=== PATIENT | female | born 1985 | race Caucasian/White ===

== ENCOUNTER → 2022-07-30 10:52 | Outpatient (CLI) | payer BC, SELFPAY ==
--- NOTE | ~2022-07-30 | MR_ITS ---
EXAMINATION: MR knee RT wo con DATE: 07/30/2022 11:49 INDICATION: Right knee pain post injury 2 weeks prior with suspected meniscal injury. TECHNIQUE: Magnetic resonance imaging (MRI) of the right knee was performed without intravenous contr ast. Sequences included coronal PD-weighted FSE, coronal PD-weighted FS FSE, sagittal T2-weighted FS E, sagittal PD-weighted FS FSE and axial PD weighted fat saturated FSE. COMPARISON: None. FINDINGS: Medial compartment: Medial meniscus is normal. Small region of shallow chondral ulceration at the lateral side of the ant erior weightbearing medial femoral condyle. Lateral compartment: Lateral meniscus is normal. Articular cartilage is normal. Patellofemoral compartment: Shallow chondral fissuring at the lateral patellar facet. Trochlear cartilage is normal. Ligaments and tendons: Complete tear at the central aspect of the anterior cruciate ligament. The posterior cruciate ligamen t is normal. There is mild thickening and mild increased signal at the anterior aspect of the proxima l medial collateral ligament and with mild edema extending proximally distally along the ligament con sistent with moderate grade sprain/partial tear. The fibular collateral ligament complex is normal. T he extensor mechanism is normal. The visualized medial and lateral hamstring tendons as well as the i liotibial band are normal. Fluid: Small right knee joint effusion. Small Ordonez's cyst. No loose osteochondral bodies identified. Osseous/other: Marrow edema surrounding a curvilinear nondisplaced trabecular fracture line underlying the posterior rim of the medial tibial plateau. Additional mild marrow edema without discrete fracture line consis tent with bone contusion along the posterior rim of the lateral tibial plateau. No corresponding frac ture or contusion along the femoral condyles. IMPRESSION: 1. Complete tear of the anterior cruciate ligament and moderate grade sprain/partial tear at the prox imal medial collateral ligament. 2. Nondisplaced impaction fracture along the posterior rim of the medial tibial plateau and bone cont usion without discrete fracture line at the posterior rim of the lateral tibial plateau likely due to anterior tibial subluxation occurring in conjunction with the ligament tears. 3. 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 4. Likely reactive small right knee joint effusion and small Ordonez's cyst. Reviewed, dictated and finalized at location A. DIGGER IMPRESSION: 1. Complete tear of the anterior cruciate ligament and moderate grade sprain/pa rtial tear at the proximal medial collateral ligament. 2. Nondisplaced impaction fracture along the posterior rim of the medial tibial plateau and bone contusion without discrete fracture line at the posterior rim of the lateral tibial plateau likely due to anterior tibial subluxation occurr ing in conjunction with the ligament tears. 3. Minimal osteoarthritis with small regions of moderate grade chondromalacia a long the anterior weightbearing medial femoral condyle and the lateral patellar facet. 4. Likely reactive small right knee joint effusion and small Ordonez's cyst.
== END ==
PROVIDERS: PCP Family Medicine Adolescent Medicine; Visit Provider Physician Assistant
DX: S83.411A Sprain of medial collateral ligament of right knee, initial encounter (principal); S83.511A Sprain of anterior cruciate ligament of right knee, initial encounter; X58.XXXA Exposure to other specified factors, initial encounter
CPT/HCPCS: 73721

== ENCOUNTER 2022-09-09 00:57 | Day surgery (SDC) | payer BC, SELFPAY ==
[2022-09-02 08:51] VITALS: BMI 38.2
--- NOTE | 2022-09-02 08:57 | PC.NURSE ---
Report to the Outpatient Waiting Room, entrance under the green pavilion located off [facility], at time 0600 on date 09/09/22. Planned Procedure Time: 0730. Time changes happen often and if your time is changed the preop area will call you the afternoon before. - You and your visitor will be asked to self-screen and do not enter if you have any COVID symptoms. - A mask is optional within the hospital at this time. Patients may have clear liquids (water, carbonated beverages, clear teas, apple juice) until 3 hours prior to surgery with a maximum of 20 ounces. - No food from midnight until time of surgery Take the following medications with a SIP of water the morning of surgery: BUSPIRONE DO NOT STOP ANY OF YOUR OTHER PRESCRIPTION MEDICATIONS PRIOR TO SURGERY?EXCEPT THE FOLLOWING Medications to discontinue per physician: N/A Date to take last dose: N/A Please no make-up, nail citizen of [place], hairspray, perfume, deodorant, or body powder the day of surgery. No jewelry (including any body piercings) or valuables the day of surgery, leave them at home. Please take a shower or bath the night before, or the morning of, surgery with an antibacterial soap. Wear comfortable, loose fitting clothing. - Jewelry must be removed prior to entering the operating room. Rings and piercings that are not removed may be cut off. - The hospital will not accept responsibility for valuables. - Please leave all valuables, including medications, at home the day of surgery. If you are going home after surgery, a licensed motor bus driver must drive you home. - NO public transportation without another adult if you receive anesthesia. - We recommend that an adult stay with you for 24 hours following discharge. - We also recommend that you do not drive, make important decision, drink alcoholic beverages, or take any drugs that were not prescribed by your health care provider for at least 24 hours after your discharge time. Follow any additional instructions given to you from your surgeon. If you or anyone in your household have experienced Covid symptoms in the past week, please notify your surgeon or the nurse liaison at the phone number below for possible testing. Telephone instructions given to PT - MIGUEL A HEREDIA and asked if any additional questions and then verbalized understanding. Patient advised to call surgeon office or pre surgery nurse liaison [phone] if any additional questions.
--- NOTE | 2022-09-08 09:54 | P.PNAN_ITS ---
Anes - Initial Pre Proc Eval Procedure: Operation Date: 09/09/22 07:30 Proposed Procedures p Right Anterior Cruciate Ligament Reconstruction - Abdi Finch MD Date/Time: 09/08/22 09:54 Surgeon: Abdi Finch MD Pre Op Diagnosis: complete tear of right acl Patient Data Age: 36 Gender: F Height: 1.65 m Weight: 104.4 kg Allergies Allergy/AdvReac Type Severity Reaction Status Date / Time erythromycin base Allergy Mild Hives / Verified 09/02/22 08:50 Red Face levofloxacin [From Levaquin] Allergy Rash Verified 09/02/22 08:50 Home Medications Medication Instructions Recorded Confirmed Type trazodone 100 mg tablet 100 mg PO QHS PRN insomnia #30 tabs 08/12/22 09/02/22 Rx buspirone 10 mg tablet 10 mg PO BID #60 tabs 08/25/22 09/02/22 Rx Patient hx anesthesia problems: none Family hx anesthesia problems: none Results Review: All pre-operative results and documents have been reviewed as part of the pre- operative evaluation. [facility] Past Medical History Medical History (Updated 09/08/22 @ 08:43 by Sanjay Hawk DO) Anxiety Surgical History Surgical History Delivery by section History of tonsillectomy Family History Family History Father Asthma Mother Diabetes mellitus Hypertension Neuropathy Social History Social History Smoking packs per day: 0.5 Smoking cigarettes per day: 10.0 Years smoked: 4 Smoking pack-years: 2.00 Smoking status: Former smoker Tobacco type: cigarettes Smoking end date: 05/22/07 Alcohol intake: current Drinks per week: 2 Alcohol use details: Socially Substance use: never Substance use type: does not use Lack of Transportation: No Lack of Food: Never True Current Housing: I Have Housing Concerned About Future Housing: No Difficulty Paying Gas/Electric Bills: No Difficulty Paying for Meds: No Currently Unemployed: No Education: Trade/Vocational Certificate Difficulty w/ Childcare or Family Care: No Living arrangements: with family Gender identity (if verbalized by the patient): Female Spiritual care concerns: No Anes - Eval Final PreProcedure Day of Procedure 09/08/22 09:54 Patient weight: obese Heart: regular rate and rhythm Lungs: clear to auscultation Airway: Mallampati scale class 1 Neurological: alert and oriented Last oral intake: >/= 8 hours ASA classification: II Emergent: no Anesthetic plan: proceed Anesthesia type and monitoring: general LMA and standard monitoring Results Review: All pre-operative results and documents have been reviewed as part of the pre-operative evaluation. Informed Consent: The patient's anesthetic plan and its attendant risks and benefits were discussed with the patient/family/POA. Questions were solicited and answers provided to the satisfaction of the patient/family/POA.
[2022-09-09] VITALS (9 sets, daily range): BP systolic 107–136; BP diastolic 60–72; PULSE 78–92; RESP 12–18; TEMP 36.6–36.8; O2SAT 97–100
[2022-09-09] MEDS: ACETAMINOPHEN 500 MG TABLET 1000 MG PO (07:00)
[2022-09-09] MEDS: LACTATED RINGERS 1,000 ML 30 ML IV CONT ×2 (07:00→10:25)
[2022-09-09] MEDS: KETOROLAC 15 MG/ML VIAL (*BKC) IV PUSH (07:00)
--- NOTE | 2022-09-09 07:06 | WPDANESPNB ---
Anes - Peripheral Nerve Block Date/Time: 09/09/22 07:06 I have discussed with the patient/family/POA the placement of a peripheral nerve block for post-operative pain management, including associated risks, benefits, complications, and side effects. Alternative methods of post-operative analgesia were detailed. Questions were solicited and answers provided to the satisfaction of the patient/family/POA. Time-Out: A pre-procedural Time-Out was completed immediately before starting the procedure and confirmed: Patient Identification, Site, Procedure, Patient Position and the Availability of Requisite Equipment. Clinical Indications: Acute post-operative pain management requested by the operative surgeon. Nerve Block Insertion Note Anes-nerve block: adductor canal right Patient position: supine Skin prep: chlorhexidine Needle: 22 gauge, stimulating, insulated echogenic needle. Needle length: 80 mm Technique: ultrasound Injectate: bupivacaine 0.5% with epi 5 mcg/ml (30cc - no epi) Observations: tolerated well Complications: none Procedure start time:: 715 Procedure end time:: 719
--- NOTE | 2022-09-09 07:15 | WPDHPUPDATE1 ---
History and Physical Update Update Date/Time: 09/09/22 07:15 History and Physical has been reviewed, including an updated exam of the patient. There are NO changes in the patient's condition. Risks, benefits, and alternatives have been discussed and questions answered. Patient agrees to proceed with procedure.
[2022-09-09] MEDS: ceFAZolin 2 GM/D5W 50 ML 2 GM/50 ML BAG IVPB (07:30)
--- NOTE | 2022-09-09 10:39 | W.PM.PROC2 ---
Procedure Note - Detailed Date of Procedure 09/09/22 Pre-op Diagnosis complete tear of right acl Post-op Diagnosis Same Procedure Performed Arthroscopic ACL reconstruction with bone-patellar tendon allograft, right. Surgeon Abdi Finch MD Anesthesia General Findings Complete ACL deficiency. Small notch and tibial footprint. Grade2 chondromalacia medial femoral condyle. Slight unstable flap debrided. Due to the tight notch, slight additional notchplasty was performed. Menisci were normal. Description of Procedure The patient was given preoperative antibiotics prior to going to the operating room. A general anesthetic was administered. Examination under anesthesia was performed. The leg was prepped and draped in the usual sterile fashion after placing the leg in the arthroscopic leg hunt. Standard inferomedial, inferolateral and superior-medial arthroscopic portals were established. In flow was obtained with the saline pump. The residual ACL tissue was debrided with the arthroscopic shaver and the radioablation probe. Minimal notchplasty was performed as needed. The menisci were carefully inspected. The allograft was fashioned on the back table at this point. Attention was then turned back to the knee. The limb was exsanguinated and the tourniquet reinflated to 300 millimeters of mercury. The drill guide was placed at the [place] ACL footprint on the femur. An anatomic location was chosen, and confirmation of safe placement with the over the top guide. The flexible guide wire was drilled out of the lateral thigh anterior to midline. The flexible reamer was used to drill the tunnel for the femoral graft. A suture was placed through the pin and brought out through the thigh. The ACL guide was used at this time to drill a guide pin for the tibial tunnel. A separate small incision was utilized at the medial tibia. This was reamed with the strait reamer. The tibia guide was set at 55?. Typical anatomic landmarks were used for the tibial footprint. The lateral meniscus was utilized, and the location placed anatomically. The graft was then fed through the tibial tunnel into the femur. The graft was carefully positioned with the bone block anteriorly on the femur. A small notch was created to accept the screw. The nitinol wire was placed and the 7 x 20 millimeter interference screw was placed with excellent purchase. The graft was cycled. The tiba bone block was secured with the knee at 30? of flexion and slight posterior drawer was applied. The distal screw was placed similarly over the nitinol wire. An 8 x 20 millimeter titanium screw was used. Fixation was excellent. Care was taken to assure that there was no impingement of the graft. The arthroscopic instruments were removed. The tourniquet was released. The wounds were closed with interrupted 4-0 Monocryl suture followed by Steri-Strips. The deeper tissues on the tibia side were closed with 2-0 Vicryl suture. Sterile bulky dressing was applied with light compression. A knee immobilizer was placed. The patient was extubated and brought to the recovery room. There were no complications. Implants [place] titanium interference screws. Estimated Blood Loss 20 Complications No immediate complications Condition Stable Disposition PACU [facility] Billing Surgery - Charge Forward: Surgery Billing
== END 2022-09-09 12:37 | disposition home or self-care (01) ==
PROVIDERS: PCP Family Medicine Adolescent Medicine; Visit Provider Orthopaedic Surgery
PROC: (CPT 29888; principal; 2022-09-09 07:30)
DX: S83.511A Sprain of anterior cruciate ligament of right knee, initial encounter (principal); G89.18 Other acute postprocedural pain; X50.0XXA Overexertion from strenuous movement or load, initial encounter; F41.9 Anxiety disorder, unspecified; Z87.891 Personal history of nicotine dependence; E66.9 Obesity, unspecified; Z68.37 Body mass index [BMI] 37.0-37.9, adult
CPT/HCPCS: 29888; 64447; A9270; C1713; J0690; J1100; J1170; J1885; J2250; J2405; J2704; J3010; J7120; L1830

== ENCOUNTER 2022-10-14 13:33 | Outpatient (CLI) | payer BC, SELFPAY ==
--- NOTE | ~2022-10-14 | MMUS_ITS ---
EXAMINATION: MM diagnostic jayme BI w masood, US breast LT limited HISTORY: Palpable lump at the 12:00 location of the left breast TECHNIQUE: Craniocaudal, mediolateral, and mediolateral oblique 3-D tomosynthesis images of the breas ts were performed and synthetic 2-D images were generated. CAD analysis was submitted and interpreted . High resolution limited left breast ultrasound was performed. COMPARISON: None, baseline BREAST PARENCHYMAL COMPOSITION: There are scattered areas of fibroglandular density. FINDINGS: MAMMOGRAPHIC FINDINGS: No suspicious mass, calcification, or architectural distortion are identified in either breast to sug gest malignancy. No mammographic correlate is identified for the reported palpable abnormality of the left breast. ULTRASOUND: There is no evidence of focal abnormal solid or cystic mass in the vicinity of the reported palpable abnormality of the left breast. IMPRESSION: 1. No specific mammographic or sonographic correlate is identified for the reported palpable abnormal ity of concern. Further evaluation at this time should be based on clinical assessment. Continued fol low-up physical examination is recommended. 2. Recommend routine screening mammography beginning at age 40. BI-RADS Category 1: Negative Reviewed, dictated and finalized at location A. IMPRESSION: 1. No specific mammographic or sonographic correlate is identified for the repo rted palpable abnormality of concern. Further evaluation at this time should be based on clinical assessment. Continued follow-up physical examination is tom mmended. 2. Recommend routine screening mammography beginning at age 40. BI-RADS Category 1: Negative
== END 2022-10-14 13:34 | disposition home or self-care (01) ==
PROVIDERS: PCP Family Medicine Adolescent Medicine; Visit Provider Obstetrics & Gynecology
DX: N61.0 Mastitis without abscess (principal); N63.0 Unspecified lump in unspecified breast
CPT/HCPCS: 76642; 77062; 77066; G0279

== ENCOUNTER 2022-11-12 07:48 | Emergency (ER) | payer BC, SELFPAY ==
--- NOTE | ~2022-11-12 | US_ITS ---
US venous doppler LE RT DATE: 11/12/2022 08:47 INDICATION: Right leg pain, tightness, erythema. History of anterior cruciate ligament surgery on Aug. TECHNIQUE: Real-time and color flow imaging and Doppler analysis of the veins of the right lower extr emity COMPARISON: None FINDINGS: The right greater saphenous vein is patent. There is spontaneous and phasic flow and normal augmentation and color flow signal and normal compression of the deep veins of the right lower extre mity. 17 x 44 x 8 mm right popliteal cyst. IMPRESSION: No evidence of deep venous thrombosis of right lower extremity Popliteal cyst Reviewed, dictated and finalized at Location A. Reviewed, dictated and finalized at location A.
[2022-11-12 07:51] VITALS: BP 124/58; PULSE 78; RESP 14; TEMP 36.9; O2SAT 100
--- NOTE | 2022-11-12 08:13 | ED.EXTPRO ---
HPI - Extremity Problem General Chief complaint: Extremity Problem,Nontraumatic Stated complaint: R LEG PAIN,RED CLYDE Time Seen by Provider: 11/12/22 08:02 History of Present Illness HPI Narrative: This is a 36-year-old female with right ACL repair 9 weeks ago, who presents to the emergency department complaining of right leg swelling, pain and rash for the past day. The patient states shortly after her surgery, she traveled to [place] by road. She suffered a laceration on the toe and was treated at the time. In the past day, she has noted pain described as ripping and pulling in the posterior calf, aggravated with flexion and extension of the foot, rated 8/10 at max moments where/10 currently. This is associated with a small amount of redness at the posterior aspect of the calf. She denies weakness, numbness, blue or cold toes or loss of sensation in the foot. Related Data Allergies Allergy/AdvReac Type Severity Reaction Status Date / Time Sulfa (Sulfonamide Allergy Intermediate Rash Verified 11/12/22 08:13 Antibiotics) erythromycin base Allergy Mild Hives / Verified 11/12/22 08:13 Red Face levofloxacin [From Levaquin] Allergy Rash Verified 11/12/22 08:13 Review of Systems Review of Systems: CONSTITUTIONAL: Denies fever, chills, or sweats. CARDIOVASCULAR: Denies chest pain, palpitations, or edema. RESPIRATORY: Denies cough or dyspnea. GASTROINTESTINAL: Denies abdominal pain, nausea, vomiting, or diarrhea. GENITOURINARY: Denies dysuria or hematuria. SKIN: Erythema of the right calf denies itching. MUSCULOSKELETAL: Right calf pain and swelling denies back pain, joint pain, or myalgia. NEUROLOGIC: Denies headache, numbness, dizziness, or weakness. PSYCHIATRIC: Denies anxiety or depression. [facility] Past Medical History Medical History Anxiety Surgical History Surgical History Delivery by section History of tonsillectomy Family History Family History Father Asthma Mother Diabetes mellitus Hypertension Neuropathy Social History Social History Smoking packs per day: 0.5 Smoking cigarettes per day: 10.0 Years smoked: 4 Smoking pack-years: 2.00 Smoking status: Former smoker Tobacco type: cigarettes Smoking end date: 05/22/07 Alcohol intake: current Drinks per week: 2 Alcohol use details: Socially Substance use: never Substance use type: does not use Lack of Transportation: No Lack of Food: Never True Current Housing: I Have Housing Concerned About Future Housing: No Difficulty Paying Gas/Electric Bills: No Difficulty Paying for Meds: No Currently Unemployed: No Education: Trade/Vocational Certificate Difficulty w/ Childcare or Family Care: No Living arrangements: with family Gender identity (if verbalized by the patient): Female Spiritual care concerns: No Exam Narrative: GENERAL: Well-developed, well-nourished, and in no acute distress. HEAD: Normocephalic, atraumatic. EYES: PERRLA and EOMI. CHEST: Clear to auscultation. No respiratory distress. No wheezes rales or rhonchi HEART: Regular rate and rhythm. No murmur heard. Normal peripheral pulses. ABDOMEN: Soft, nontender, nondistended, normal active bowel sounds. EXTREMITIES: There is mild swelling of the right distal leg compared to the left. Normal range of motion. No edema. SKIN: There is a an area of nontender erythema at the posterior aspect of the right calf measuring approximately 3 x 5 cm. Warm, dry. NEURO: No focal deficits. Alert and oriented x3. PSYCH: Normal mood and affect. Course Course Emergency Course: 09:32 - Ultrasound not concerning for DVT. test negative. Will treat for cellulitis. I advised the patient to follow-up with
--- NOTE | 2022-11-12 08:30 | PC.NURSE ---
Pt to U/S via stretcher at this time.
[2022-11-12 10:05] VITALS: BP 126/84; PULSE 80; RESP 16; O2SAT 99
== END 2022-11-12 10:06 | disposition home or self-care (01) ==
PROVIDERS: Emergency Provider Preventive Medicine Aerospace Medicine; PCP Family Medicine Adolescent Medicine
DX: L03.115 Cellulitis of right lower limb (principal); M79.661 Pain in right lower leg; Z87.891 Personal history of nicotine dependence
CPT/HCPCS: 81025; 93971; 99284

== ENCOUNTER 2023-07-27 12:52 | Outpatient (CLI) | payer BC, SELFPAY ==
--- NOTE | ~2023-07-27 | XR_ITS ---
EXAMINATION: XR sacroiliac joints min 3V INDICATION: Polyarthritis, low back pain TECHNIQUE: Three views of the sacroiliac joints are obtained. COMPARISON: None available FINDINGS: Bone alignment is normal. There is no fracture. No abnormal sclerosis or erosion of the sac roiliac joints is at identified. IMPRESSION: 1. Unremarkable sacroiliac joints. Reviewed, dictated and finalized at location L. D DAY CARE TEACHER
--- NOTE | ~2023-07-27 | XR_ITS ---
EXAMINATION: XR hand LT min 3V INDICATION: Polyarthritis TECHNIQUE: Three views of the left hand are obtained. COMPARISON: None available FINDINGS: No fracture, dislocation, or subluxation. The bones, soft tissues, and joint spaces are nor mal. IMPRESSION: 1. Unremarkable hand radiographs. Reviewed, dictated and finalized at location L. SUPERVISOR
--- NOTE | ~2023-07-27 | XR_ITS ---
EXAMINATION: XR hand LT min 3V INDICATION: Polyarthritis TECHNIQUE: Three views of the LEFT hand are obtained. COMPARISON: None available FINDINGS: No fracture, dislocation, or subluxation. The bones, soft tissues, and joint spaces are nor mal. IMPRESSION: 1. Unremarkable hand radiographs. Reviewed, dictated and finalized at location L. ATIONS ADMINISTRATIVE ASSISTANT
== END 2023-07-27 12:53 ==
PROVIDERS: PCP Family Medicine Adolescent Medicine
DX: M13.0 Polyarthritis, unspecified (principal); M54.50 Low back pain, unspecified
CPT/HCPCS: 72202; 73130

== ENCOUNTER 2024-08-25 12:36 | Emergency (ER) | payer BC, SELFPAY ==
--- NOTE | ~2024-08-25 | CT_ITS ---
CLINICAL INDICATION: Right lower quadrant pain. Right upper quadrant pain. COMPARISON: None. TECHNIQUE: Multiple contiguous axial images of the abdomen and pelvis were performed following the ad ministration of with 100 mL Omnipaque-350 intravenous contrast The dose-length product (DLP) was 995.38 mGy-cm. Automated exposure control and iterative reconstruction technique were employed. FINDINGS/OBSERVATIONS: Visualized lower thorax: The bilateral lung bases are clear. The heart is of normal size, without pericardial effusion. Small hiatal hernia is present. Liver: The liver demonstrates homogeneous enhancement and is enlarged, measuring 20 cm in longitudinal dimen clarisa Gallbladder and biliary system: The gallbladder is minimally distended, and otherwise unremarkable. Pancreas: The pancreas enhances homogeneously without ductal dilatation. Spleen: The spleen enhances homogeneously and is not enlarged. Kidneys: The bilateral kidneys enhance symmetrically without hydronephrosis or renal calculi. Adrenal glands: Unremarkable. Gastrointestinal tract: Fecal stasis within the colon. Appendix: The air-filled appendix is of normal caliber (axial series, images 136 through 144). Vasculature: Unremarkable. Lymph nodes: No pathologically enlarged or morphologically suspicious lymph nodes within the retroperitoneum or at the root of the mesentery. Pelvic structures: The bladder is minimally distended, and otherwise unremarkable. The uterus is anteverted and anteflexed, and nodular in contour suggesting fibroid disease. Body wall and musculoskeletal: No significant degenerative disease within the lower thoracic or lumbosacral spine. IMPRESSION: Hepatomegaly. No acute pathology within the abdomen or pelvis, as detailed above. Reviewed, dictated and finalized at location A. IMPRESSION: Hepatomegaly. No acute pathology within the abdomen or pelvis, as detailed anthony e.
--- OUTSIDE RECORDS SUMMARY | 2024-08-25 12:39 | XMS_ITS ---
Author Organization [facility] Address [address] [place], [place] [id number] Care Team Providers Care Quality Supervisor Name Role Phone ROSS CARVAJAL, ABDIEL Sosa Primary Care Provider U Dalton Aguilar Unavailable [phone] Encounters Encounter Location Date Provider [facility] [address], [address] [place], [place] [id number] 02/13/2024 Dalton Jackson PLAN OF TREATMENT No Information
--- OUTSIDE RECORDS SUMMARY | 2024-08-25 12:39 | XMS_ITS ---
Author Organization [facility] Address [address] [place], [place] [id number] Care Team Providers Care Medical Customer Service Representative Name Role Phone ROSS CARVAJAL, ABDIEL Sosa Primary Care Provider U leslieailzo JacksonOmarrenay Unavailable [phone] Evy Valladares Unavailable [phone] ALLERGIES Allergen (clinical drug ingredient) Drug/Non Drug Allergy documented on EMR Reaction Allergy Type Onset Date Status levofloxacin levoFLOXacin Unknown Drug Allergy A ctive sulfamethoxazole / trimethoprim sulfamethoxazole-tri methoprim Unknown Drug Allergy Active erythromycin Unknown Drug Allergy Acti ve RESULTS Component Value Reference Range Notes Complement C4, Serum Reviewed date:02/13/2024 11:42:25 AM Interpretation: Performing Lab:[facility], [address] [facility], Phone - [phone], Director - Ruddy Notes/Report: Complement C4, Serum 27 12-38 mg/dL CBC With Differential/Platel et Reviewed date:02/13/2024 11:42:25 AM Interpretation: Performing Lab:[facility], [address] [facility], Phone - [phone], Director - PhDJennifer Notes/Report: WBC 9.5 3.4-10.8 x10E3/uL RBC 4.85 3.77-5.28 x10E6/uL Hemoglobin 14.9 11.1-15.9 g/dL Hematocrit 44.9 34.0-46.6 % MCV 93 79-97 fL MCH 30.7 26.6-33.0 pg MCHC 33.2 31.5-35.7 g/dL RDW 11.8 11.7-15.4 % Platelets 206 150-450 x10E3/uL Neutrophils 67 Not Estab. % Lymphs 26 Not Estab. % Monocytes 6 Not Estab. % Eos 0 Not Estab. % Basos 1 Not Estab. % Immature Cells Neutrophils (Absolute) 6.4 1.4-7.0 x10E3/uL Lymphs (Absolute) 2.5 0.7-3.1 x10E3/uL Monocytes(Absolute) 0.6 0.1-0.9 x10E3/uL Eos (Absolute) 0.0 0.0-0.4 x10E3/uL Baso (Absolute) 0.1 0.0-0.2 x10E3/uL Immature Granulocytes 0 Not Estab. % Immature Grans (Abs) 0.0 0.0-0.1 x10E3/uL NRBC Hematology Comments: Sed Rate - Westergren Reviewed date:02/13/2024 11:42:25 AM Interpretation: Performing Lab:[facility] [address], Phone - [phone], Director - [facility] Notes/Report: [facility] 0-32 mm/hr Complement C3, Serum Reviewed date:02/13/2024 11:42:25 AM Interpretation: Performing Lab:[facility] [address], Phone - [phone], Director - [facility] Notes/Report: Complement C3, Serum 141 82-167 mg/dL Rheumatoid Arthritis Factor Reviewed date:02/13/2024 11:42:25 AM Interpretation: Performing Lab:[facility] [address], Phone - [phone], Director - [facility] Notes/Report: Rheumatoid Factor (RF) <10.0 <14.0 IU/mL C-Reactive Protein, Quant Reviewed date:02/13/2024 11:42:25 AM Interpretation: Performing Lab:[facility] [address], Phone - [phone], Director - [facility] Notes/Report: C-Reactive Protein, Quant 2 0-10 mg/L Thyroid Peroxidase and Antit hyroglobunlin Antibodies Reviewed date:02/13/2024 11:42:25 AM Interpretation: Performing [facility], [address] [place] [address], Phone - [phone], Director - [facility] Notes/Report: Thyroid Peroxidase (TPO) Ab <9 0-34 IU/mL Thyroglobulin Antibody <1.0 0.0-0.9 IU/mL Thyroglobulin Antibody measured by [employer] . It should be noted that the presence of thyroglobulin antibodies may not be pathogenic nor diagnostic, especially at very low levels. The assay catering barista has found that four percent of individuals without evidence of thyroid disease or autoimmunity will have positive TgAb levels up to 4 IU/mL. CCP IgG Antibodies Reviewed date:02/13/2024 11:42:25 AM Interpretation: Performing Lab:[facility], Phone - [phone], Director - [facility] Notes/Report: Anti-CCP Ab, IgG/IgA 5 0-19 units Negative <20 Weak positive 20 - 39 Moderate positive 40 - 59 Strong positive >59 IVIS Panel (IVIS+ESTELA+Scl 70+Sj Fabrizio+SjoSSB) Reviewed date:02/13/2024 11:42:25 AM Interpretation: Performing [facility], [address] [place] [address], Phone - [phone], Director - [facility] Notes/Report: IVIS by IFA Rfx Titer/Pattern Negative Negative <1:80 Borderline 1:80 Positive >1:80 ICAP nomenclature: AC-0 For more information about Hep-2 cell patterns use ANApatterns.org, the official website for the International Consensus on Antinuclear Antibody (IVIS) Patterns (ICAP). PULLEY WORKER Antibodies <0.2 0.0-0.9 AI Bliss Antibodies <0.2 0.0-0.9 AI Antiscleroderma-70 Antibodies <0.2 0.0-0.9 AI Sjogren's Anti-SS-A <0.2 0.0-0.9 AI Sjogren's Anti-SS-B <0.2 0.0-0.9 AI DS DNA-CRITHIDIA IFA W/REFLE X TO [facility]ITER-[facility] Reviewed date:02/13/2024 11:42:25 AM Interpretation: Performing [facility], [address] [facility] [place], Phone - [phone], Director - Ruddy Notes/Report: dsDNA Crithidia luciliae IFA Negative Negative REASON FOR VISIT 6 month f/u MEDICATIONS Medication SIG (Take, Route, Fr equency, Duration) Notes Start Date End Date Status acyclovir 400 mg 1 tab(s) orally 2 times a day Active VITAL SIGNS BMI 35.44 kg/m2 02/08/2024 Blood pressure systolic 118 mm Hg 02/08/20 24 Blood pressure diastolic 81 mm Hg 024 Heart Rate 88 /min 02/08/2024 Height 65 in 02/08/2024 Weight 213 lbs 02/08/2024 Encounters Encounter Location Date Provider Diagnosis [facility], [address] [place] [address], [address] [place], [place] [phone] 02/08/2024 Evy Zobrist Dry eye H04.129 and IVIS positive R76.8 ASSESSMENTS Encounter Date Diagnosis Assessment Notes Treatment Notes Treatment Clinical Notes 02/08/2024 Dry eye (ICD-10 - H04.129) 02/08/2024 IVIS positive (ICD-10 - R76.8) PLAN OF TREATMENT Medication Medication Name Sig Start Date Stop Date Notes acyclovir 400 mg 1 tab(s) orally 2 times a day Progress Notes * Examination Category Sub-Category Detail Notes General Constitutional: No acute distres s HEENT: PERRLA, Neck supple, Normal sclerae and conjunctivae Abdomen: soft, no organomegal y or masses /Rectal: not done Skin: No cutaneous lesions . No subcutaneous nodules noted in the 4 extremities Neurological: No focal neurologica l findings Heme/Lymphatic: No cervical, axillar y, or inguinal adenopathy Psych: Alert, oriented x 3, Normal affect Musculoskeletal: Normal strength. No muscle atrophy Joint Exam Shoulders No swelling. No tenderness. NROM. Elbows No swelling. No tend erness. NROM. Wrists No swelling. No tend erness. NROM. Hips No tenderness, angella l ROM, no instability or deformity Knees No swelling, no tend erness, NROM. No instability or deformity Ankles No swelling, no tend erness, NROM., No instability or deformity. All MCPs No swelling, no tend erness, no deformity unless noted below. All PIPs No swelling, no tend erness, no deformity unless noted below. All DIPs No swelling, no tend erness, no deformity unless noted below. All MTPs No swelling, no tend erness, NROM, no deformity unless noted below. History and Physical Notes * HPI (History of Present Illness) Category Sub-Category Detail Notes Rheumatology Joint pain Joint swelling morning stiffness All day dry eyes dry mouth Raynaud's/ dicoloration of fingers rash Back pain Psoriasis Iritis, conjuctivitis, uveiitis episcler itis Crohn's/ ulcerative colitis labs positive IVIS with ti ter of:1:80 normal ESR normal CRP NSAID's Physical Examination Category Sub-Category Detail Notes MDHAQ Summary Function (0-10):: 0 Pain (0-10):: 0 Patient Global Assessment of Disease Activity (0 -10):: 1 RAPID3 Score (0-30):: 1 Physician Global Assessment of Disease Activity (0-10):: 2 Prognosis Good w/tx Erosive Damage No
--- OUTSIDE RECORDS SUMMARY | 2024-08-25 12:39 | XMS_ITS | Clinical Summary ---
Author Organization [facility] Address [address] [place] [address] Care Team Providers Care Oenologist Name Role Phone Eric Ricardo MD Primary Care Provider +1- [phone] Family History Medical History Relation Comments Breast Cancer Maternal Grandmother 40's Relation Status Comments Maternal Grandmother Social History Tobacco Use Types Packs/Day Years Used Date Smoking Tobacco: Never Assessed Comments Unknown Sex and Gender Information Value Date Recorded Sex Assigned at Not on file Legal Sex Female 7:15 PM CDT Gender Identity Not on file Sexual Orientation Not on file Plan of Treatment Health Maintenance Due Date Last Done Comments Cervical Cancer Screening Pa p Smear (Age 30 to 64) Every 3 Years 1984 Annual Physical 11/22/1987 Hepatitis C 2002 DTaP, Tdap and Td Vaccines ( 1 - Tdap) 11/22/2003 Hepatitis B Vaccines (1 of 3 - 19+ 3-dose series) 11/22/2003 Cervical Cancer Screening Pa p with HPV Testing (Age 30 to 64) Every 5 Years 2014 Cervical Cancer Screening wi th HPV 2014 COVID-19 Vaccine (2023-2 5 season) 2024 07/21/2020, 06/23/2020 PHQ-2 (Physician [place]) 05/22/2024 HPV Vaccines Aged Out No longer eligi ble based on patient's age to complete this topic Meningococcal B Vaccine Aged Out No l onger eligible based on patient's age to complete this topic Meningococcal Vaccine Aged Out No angel chuck eligible based on patient's age to complete this topic Pneumococcal Vaccine: Pediatrics (0 to 5 Years) and At-Risk Patients (6 to 64 Years) Aged Out No longer eligible b ased on patient's age to complete this topic RSV Immunizations Under 20 Months Aged Out No longer eligible b ased on patient's age to complete this topic Insurance [facility] Care Teams Oenologist Relationship Specialty Start Date End Date Eric Ricardo MD [address] [phone] PCP - General FAMILY PRACTICE 03/27/24
--- OUTSIDE RECORDS SUMMARY | 2024-08-25 12:39 | XMS_ITS | Patient Health Record ---
Author Organization [facility] Address [address] [place], [place] [id number] Care Team Providers Care Telephone Interviewer Name Role Phone ROSS CARVAJAL, ABDIEL Sosa Primary Care Provider U leslieailzo Renetta, Akgun Unavailable [phone] Evy Valladares Unavailable [phone] ALLERGIES Allergen (clinical drug ingredient) Drug/Non Drug Allergy documented on EMR Reaction Allergy Type Onset Date Status levofloxacin levoFLOXacin Unknown Drug Allergy A ctive sulfamethoxazole / trimethoprim sulfamethoxazole-tri methoprim Unknown Drug Allergy Active erythromycin Unknown Drug Allergy Acti ve RESULTS Component Value Reference Range Notes Complement C4, Serum Reviewed date:02/13/2024 11:42:25 AM Interpretation: Performing Lab:[facility], [address] [facility], Phone - [phone], Director - PhDArlethi Notes/Report: Complement C4, Serum 27 12-38 mg/dL CBC With Differential/Platel et Reviewed date:02/13/2024 11:42:25 AM Interpretation: Performing Lab:[facility], [address] [facility], Phone - [phone], Director - PhDRichajai Notes/Report: WBC 9.5 3.4-10.8 x10E3/uL RBC 4.85 [...] [place] Reviewed date:02/13/2024 11:42:25 AM Interpretation: Performing Lab:[facility] [address], Phone - [phone], Director - [facility] Notes/Report: Sedimentation Rate-[facility] 7 0-32 mm/hr Complement C3, Serum Reviewed date:02/13/2024 11:42:25 AM Interpretation: Performing Lab:[facility] [address], Phone - [phone], Director - [facility] Notes/Report: Complement C3, Serum 141 82-167 mg/dL Rheumatoid Arthritis Factor Reviewed date:02/13/2024 11:42:25 AM Interpretation: Performing Lab:[facility] [address], Phone - [phone], Director - [facility] Notes/Report: Rheumatoid Factor (RF) <10.0 <14.0 IU/mL C-Reactive Protein, Quant Reviewed date:02/13/2024 11:42:25 AM Interpretation: Performing Lab:[facility] [address], Phone - [phone], Director - [facility] Notes/Report: C-Reactive Protein, Quant 2 0-10 mg/L Thyroid Peroxidase and Antit hyroglobunlin Antibodies Reviewed date:02/13/2024 11:42:25 AM Interpretation: Performing Lab:[facility], Phone - [phone], Director - [facility] Notes/Report: Thyroid Peroxidase (TPO) Ab <9 0-34 IU/mL Thyroglobulin Antibody <1.0 0.0-0.9 IU/mL Thyroglobulin Antibody measured by [employer] Methodology . It should be noted that the presence of thyroglobulin antibodies may not be pathogenic nor diagnostic, especially at very low levels. The assay executive manager has found that four percent of individuals without evidence of thyroid disease or autoimmunity will have positive TgAb levels up to 4 IU/mL. CCP IgG Antibodies Reviewed date:02/13/2024 11:42:25 AM Interpretation: Performing Lab:[facility], Phone - [phone], Director - [facility] Notes/Report: Anti-CCP Ab, IgG/IgA 5 0-19 units Negative <20 Weak positive 20 - 39 Moderate positive 40 - 59 Strong positive >59 IVIS Panel (IVIS+ESTELA+Scl 70+Sj Fabrizio+SjoSSB) Reviewed date:02/13/2024 11:42:25 AM Interpretation: Performing Lab:[facility], Phone - [phone], Director - [facility] Notes/Report: IVIS by IFA Rfx Titer/Pattern Negative Negative <1:80 Borderline 1:80 Positive >1:80 ICAP nomenclature: AC-0 For more information about Hep-2 cell patterns use ANApatterns.org, the official website for the International Consensus on Antinuclear Antibody (IVIS) Patterns (ICAP). TELEMARKETING REPRESENTATIVE Antibodies <0.2 0.0-0.9 AI Bliss Antibodies <0.2 0.0-0.9 AI Antiscleroderma-70 Antibodies <0.2 0.0-0.9 AI Sjogren's Anti-SS-A <0.2 0.0-0.9 AI Sjogren's Anti-SS-B <0.2 0.0-0.9 AI DS DNA-CRITHIDIA IFA W/REFLE X TO [facility] Reviewed date:02/13/2024 11:42:25 AM Interpretation: Performing Lab:[facility], Phone - [phone], Director - Ruddy Notes/Report: dsDNA Crithidia luciliae IFA Negative Negative REASON FOR REFERRAL No Information MEDICATIONS Medication SIG (Take, Route, Fr equency, Duration) Notes Start Date End Date Status acyclovir 400 mg 1 tab(s) orally 2 times a day Active SOCIAL HISTORY Sex Assigned At : Social History Observation Description Sex Assigned At Unknown PROBLEMS Problem Type ICD Code Onset Dates Problem Status W/U Status Risk SNOMED Code Notes Problem IVIS positive (R76.8) Active confirmed 684311963 Problem Episcleritis of left eye (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.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) Active confirmed 692558151365150 Problem Low back pain at multiple sites (M54.50) Active confirmed 861640754 Problem Dry eye (H04.129) Active confirmed 1622 29260 Problem Polyarthritis (M13.0) Active confirmed 22821328 VITAL SIGNS Heart Rate 88 /min 02/08/2024 Blood pressure diastolic 81 mm Hg 02/08/2024 Height 65 in 02/08/2024 Blood pressure systolic 118 mm Hg 02/08/2024 Weight 213 lbs 02/08/2024 BMI 35.44 kg/m2 02/08/2024 Encounters Encounter Location Date Provider [facility] [address] [place] [address], [facility] [address] [place], [place] [phone] 02/08/2024 Evy Valladares Dry eye H04.129 and IVIS positive R76.8 [facility] [address] [place] [address], [facility] [address] [place], [place] [phone] 02/13/2024 Dalton Jackson ASSESSMENTS Encounter Date Diagnosis Assessment Notes Treatment Notes Treatment Clinical Notes 02/08/2024 IVIS positive (ICD-10 - R76.8) 02/08/2024 Dry eye (ICD-10 - H04.129) PLAN OF TREATMENT Pending Test Test Name Order Date X ray : Hand left- outside order X ray : Hand right- outside order 2023 X ray : SI joints- outside order 024 Insurance Providers Payer Name Payer Address Payer Phone Subscriber Number Group Number Insured Name Patient Relationship to Insured Coverage Start Date Coverage End Date [facility] Access [address] [place] [address] [id number] Rochelle Gold Self - patient is the insured 4 MEDICAL (GENERAL) HISTORY Medical History History ICD Code migraine headache Double vision anxiety chest pain swelling of ankles/feet asthma varicose veins Lumps in Breasts Surgical History Surgery Date(Month/Year) tonsills 2000 c section 2010 lasik 2013 uteran ablation 2013 ACL reconstruction 2022 Hospitalization History Reason Date(Month/Year) tore acl 2022
--- OUTSIDE RECORDS SUMMARY | 2024-08-25 12:39 | XMS_ITS ---
Author Organization [facility] Address [address] [place], [place] [phone] Care Team Providers Care Zigzag Stitcher Name Role Phone ROSS CARVAJAL, ABDIEL Sosa Primary Care Provider U Dalton Aguilar Unavailable [phone] REASON FOR VISIT +IVIS Encounters Encounter Location Date Provider Diagnosis [facility] [address], [address] [place], [place] [phone] 08/16/2023 Dalton Jackson PLAN OF TREATMENT No Information
[2024-08-25 12:43] VITALS: BP 136/77; PULSE 88; RESP 18; TEMP 36.7; O2SAT 100
[2024-08-25 13:17] LABS: BEDSIDEPREGUCG Negative (Negative)
[2024-08-25 13:35] LABS: Basophils Absolute Auto 0.1 K/mm3 (0.0-0.1); Basophils Percent Auto 0.7 % (0.2-1.2); Eosinophils Absolute Auto 1.3 K/mm3 (0-0.3); Eosinophils Percent Auto 12.4 % (0-4.4); Hematocrit 46.9 % (37.0-47.0); Immature Granulocyte Absolute 0.03 K/mm3 (0.00-0.031); Immature Granulocyte Percent A 0.3 % (0-0.5); Lymphocytes Absolute Auto 2.99 K/mm3 (0.9-3.2); Lymphocytes Percent Auto 28.1 % (18.3-44.2); Mean Corpuscular Hemoglobin 29.6 pg (26-34); Mean Corpuscular Volume 92.5 fl (80-100); Mean Platelet Volume 10.1 fl (7.4-10.4); Monocytes Absolute Auto 0.6 K/mm3 (0.1-0.6); Monocytes Percent Auto 5.6 % (2.6-8.5); Neutrophils Absolute Auto 5.6 K/mm3 (1.3-6.7); Neutrophils Percent Auto 52.9 % (45.5-73.1); Platelet Count Result 194 k/mm3 (150-375); Red Blood Count 5.07 M/mm3 (4.2-5.4); Red Cell Distribution Width 12.1 % (11.5-14.5); White Blood Count 10.6 K/mm3 (4.5-10.0)
[2024-08-25 13:36] LABS: BEDSIDEPREGUCG Negative (Negative)
[2024-08-25 13:36] LABS: Add Urine Microscopic? NO; Appearance Urine Clear (Clear); Bilirubin Urine Negative (Negative); Blood Urine Negative (Negative); Color Urine Yellow (Yellow); Glucose Urine UA Negative (Negative); Ketones Urine Negative (Negative); Leukocyte Esterase Ur Negative LEU/UL (Negative); Nitrate Urine Negative (Negative); Protein Urine Negative (Negative); Specific Grav Ur 1.011 (1.001-1.035)
[2024-08-25 13:56] LABS: Alanine Aminotransferase 55 U/L (6-35); Albumin Level 4.1 g/dL (3.5-5.1); Alkaline Phosphatase 71 U/L (38-126); Anion Gap 13 mmol/L (4-12); Aspartate Amino Transferase 44 U/L (14-36); Bilirubin,Total 0.9 mg/dL (0.2-1.3); Blood Urea Nitrogen 14 mg/dL (7-17); Calcium 8.9 mg/dL (8.4-10.2); Carbon Dioxide 30 mmol/L (22-30); Chloride 103 mmol/L (98-107); Estimated CRCL calculation 114 ml/min; Estimated Glomerular Filt Rate > 60; Glucose 96 mg/dL (65-110); Lipase 45 U/L (23-300); Potassium 4.6 mmol/L (3.4-5.0); Sodium 146 mmol/L (137-145)
--- OUTSIDE RECORDS SUMMARY | 2024-08-25 14:07 | XMS_ITS | Clinical Summary ---
Author Organization [facility] Address [address] [place] [address] Care Team Providers Care Multiple Cut Off Saw Operator Name Role Phone Eric Ricardo MD Primary Care Provider +1- [phone] Family History Medical History Relation Comments Breast [...] 5 season) 2024 07/21/2020, 06/23/2020 PHQ-2 (Physician [place]) 05/22/2024 HPV Vaccines Aged Out No longer [...] patient's age to complete this topic Insurance [facility] Care Teams Multiple Cut Off Saw Operator Relationship Specialty Start Date End Date Eric Ricardo MD [address] [phone] PCP - General FAMILY PRACTICE 03/27/24
[2024-08-25] MEDS: FAMOTIDINE 20 MG/2 ML VIAL IV PUSH (14:53)
[2024-08-25] MEDS: ONDANSETRON INJ 4 MG/2 ML VIAL IV PUSH (14:53)
[2024-08-25 15:01] VITALS: BP 118/64; PULSE 64; RESP 16; O2SAT 100
--- NOTE | 2024-08-25 15:04 | ED_ITS ---
HPI - Abdominal Pain General Chief Complaint: Abdominal Pain Stated Complaint: abd. pain x5 days Time Seen by Provider: 08/25/24 14:01 Source: patient Mode of arrival: ambulatory Limitations: no limitations History of Present Illness HPI narrative: This is a 38-year-old female who presents to the ED for chief complaint of upper abdominal pain intermittently over the past 5-6 days. Patient states that pain is starting to migrate somewhat to the right side. She does have some right flank pain as well. Reports a consistent burning pain to the epigastrium. States that she has also had a couple episodes of diarrhea this week. Endorses nausea but no vomiting. Denies fevers, chills, urinary symptoms. Endorses surgical history of but no other abdominal surgical history. Related Data Home Medications ?Medication ?Instructions ?Recorded ?Confirmed ?Last Taken ?Type mupirocin 2 % topical ointment 1 applic topical BID PRN 06/26/23 06/26/23 Unknown History Allergies Allergy/AdvReac Type Severity Reaction Status Date / Time Sulfa (Sulfonamide Allergy Intermediate Rash Verified 08/25/24 12:38 Antibiotics) erythromycin base Allergy Mild Hives / Verified 08/25/24 12:38 Red Face levofloxacin (From Levaquin) Allergy Rash Verified 08/25/24 12:38 Review of Systems 2 Review of Systems: All systems as dictated in HPI COUNT INCLUDES THE [facility] Past Medical History Medical History (Updated 08/25/24 @ 16:08 by Raciel Murry PA-C) Anxiety Right medial tibial plateau fracture Complete tear of right ACL Surgical History Surgical History (Updated 06/23/23 @ 06:09 by Eric Ricardo MD) History of endometrial ablation (2014) Delivery by section (2010) History of tonsillectomy (2000) Family History Family History Father Asthma Mother Diabetes mellitus Hypertension Neuropathy Grandparent Breast cancer Grandparent Cerebrovascular accident Blood clot in leg Grandparent Dementia Social History Social History Smoking packs per day: 0.5 Smoking cigarettes per day: 10.0 Years smoked: 4 Smoking pack-years: 2.00 Smoking status: Former smoker Tobacco type: cigarettes Smoking end date: 05/22/07 Alcohol intake: current Drinks per week: 2 Alcohol use details: Socially Substance use: never Substance use type: does not use Lack of Transportation: No Lack of Food: Never True Current Housing: I Have Housing Concerned About Future Housing: No Difficulty Paying Gas/Electric Bills: No Difficulty Paying for Meds: No Currently Unemployed: No Education: High School Diploma/GED Difficulty w/ Childcare or Family Care: No Living arrangements: with family Gender identity (if verbalized by the patient): Female Spiritual care concerns: No Exam 2 Narrative: GENERAL: Well-appearing, well-nourished, and in no acute distress. HEAD: Normocephalic, atraumatic. EYES: PERRLA and EOMI. ENT: Nares clear, no rhinorrhea or epistaxis. Mucous membranes moist. Oropharynx without tonsillar hypertrophy exudate or other lesions. NECK: Supple. No adenopathy or masses. CHEST: No respiratory distress. Clear to auscultation. No wheezes rales or rhonchi HEART: Regular rate and rhythm. No murmur heard. Normal peripheral pulses. ABDOMEN: Mild tenderness to the epigastrium. Soft, otherwise nontender, nondistended, normal active bowel sounds. MSK: Normal range of motion. No edema. SKIN: Warm, dry, no rash. NEURO: Alert and oriented x4. No focal deficits. PSYCH: Normal mood and affect. Course Vital Signs Vital signs: Vital Signs Temperature 98.1 F 08/25/24 12:43 Pulse Rate 88 08/25/24 12:43 Respiratory Rate 18 08/25/24 12:43 Blood Pressure 136/77 08/25/24 12:43 Pulse Oximetry 100 08/25/24 12:43 Temperature 98 F 08/25/24 16:32 Pulse Rate 88 08/25/24 16:32 Respiratory Rate 18 08/25/24 16:32 Blood Pressure 117/72 08/25/24 16:32 Pulse Oximetry 100 08/25/24 16:32 MDM - Abdominal Pain MDM Narrative Medical decision making narrative: This is a 38-year-old female who presents to the ED for chief complaint of upper abdominal pain over the past 5-6 days. Vitals are normal. Exam is benign overall. Mild focal abdominal tenderness to the epigastrium. Lab work shows mildly elevated white count of 10.6. CMP with mild elevations in AST and ALT of 44 and 55 respectively. Alk-phos and bilirubin are normal. Urinalysis is grossly negative. CT abdomen and pelvis with IV contrast: IMPRESSION: Hepatomegaly. No acute pathology within the abdomen or pelvis, as detailed above. Patient was given Zofran and Pepcid on arrival with decent relief of symptoms. She declined any opioid pain medications. Presentation a most likely consistent with gastritis versus gastroenteritis. May be a component of hepatomegaly contributing to her right-sided pain. Rx from of resolve given. Instructions for gastritis given. Patient will be discharged in stable condition. Supportive measures discussed and return precautions given. Patient is understanding and agreeable with plan for discharge with PCP follow-up. Lab Data 08/25/24 13:28 08/25/24 13:28 Labs: Lab Results 08/25/24 08/25/24 08/25/24 Range/Units 13:06 13:28 13:33 WBC 10.6 H (4.5-10.0) K/mm3 RBC 5.07 (4.2-5.4) M/mm3 Hgb 15.0 (12.0-15.0) g/dL Hct 46.9 (37.0-47.0) % MCV 92.5 (80-100) fl MCH 29.6 (26-34) pg MCHC 32.0 (32-36) g/dl RDW 12.1 (11.5-14.5) % Plt Count 194 (150-375) k/mm3 MPV 10.1 (7.4-10.4) fl Immature Gran % (Auto) 0.3 (0-0.5) % Neut % (Auto) 52.9 (45.5-73.1) % Lymph % (Auto) 28.1 (18.3-44.2) % [place] % (Auto) 5.6 (2.6-8.5) % Eos % (Auto) 12.4 H (0-4.4) % Baso % (Auto) 0.7 (0.2-1.2) % Lymph # (Auto) 2.99 (0.9-3.2) K/mm3 [place] # (Auto) 0.6 (0.1-0.6) K/mm3 Eos # (Auto) 1.3 H (0-0.3) K/mm3 Baso # (Auto) 0.1 (0.0-0.1) K/mm3 Abs Immat Gran (auto) 0.03 (0.00-0.031) K/mm3 Absolute Neuts (auto) 5.6 (1.3-6.7) K/mm3 Absolute Nucleated RBC 0.000 (0.0-0.012) K/mm3 Nucleated RBC % 0.0 (0.0-0.2) % Sodium 146 H (137-145) mmol/L Potassium 4.6 (3.4-5.0) mmol/L Chloride 103 (98-107) mmol/L Carbon Dioxide 30 (22-30) mmol/L Anion Gap 13 H (4-12) mmol/L BUN 14 (7-17) mg/dL Creatinine 0.64 L (0.7-1.0) mg/dL Estim Creat Clear Calc 114 ml/min Estimated GFR > 60 (59 - ) Glucose 96 (65-110) mg/dL Calcium 8.9 (8.4-10.2) mg/dL Total Bilirubin 0.9 (0.2-1.3) mg/dL AST 44 H (14-36) U/L ALT 55 H (6-35) U/L Alkaline Phosphatase 71 (38-126) U/L Total Protein 7.0 (6.3-8.2) g/dL Albumin 4.1 (3.5-5.1) g/dL Lipase 45 (23-300) U/L Urine Color Yellow (Yellow) Urine Appearance Clear (Clear) Urine pH 8.0 (5.0-9.0) Ur Specific [place] 1.011 (1.001-1.035) Urine Protein Negative (Negative) mg/dL Urine Glucose (UA) Negative (Negative) mg/dL Urine Ketones Negative (Negative) mg/dL Ur Blood (Man) Negative (Negative) Urine Nitrate Negative (Negative) Urine Bilirubin Negative (Negative) Urine Urobilinogen 1.0 (<2.0) mg/dL Leukocyte Esterase Rfl Negative (Negative) TRACI/UL POC Urine HCG, Qual Negative Negative (Negative) Imaging Data Radiologist's impression: ITS Impressions Abdomen/Pelvis CT 08/25/24 15:48 IMPRESSION: Hepatomegaly. No acute pathology within the abdomen or pelvis, as detailed above. Discharge Plan Discharge Clinical Impression: Hepatomegaly, Acute epigastric pain Patient Disposition: Home, Self-Care Condition: Stable Instructions: Antibiotic Form Additional Instructions: Exam today is reassuring overall. There is some evidence of enlarged liver on the CT scan but overall no emergent or urgent findings. Please take omeprazole for possible gastritis. Follow-up with your PCP regarding these findings. If you have any new or worsening symptoms please return to the ER for further evaluation. Patient Language: Green[place]ic Prescriptions: New omeprazole 40 mg capsule,delayed release(DR/EC) 40 mg PO DAILY Qty: 30 0RF No Action mupirocin 2 % ointment 1 applic topical BID PRN ketoconazole 2 % cream 1 applic topical BID Qty: 15 0RF acyclovir 400 mg tablet 400 mg PO TID PRN (Reason: cold sores) Qty: 15 6RF Follow-up/Referrals: Eric Ricardo MD [Primary Care Provider] - Time of Disposition: 16:08
[2024-08-25 16:32] VITALS: BP 117/72; PULSE 88; RESP 18; TEMP 36.6; O2SAT 100
== END 2024-08-25 16:33 | disposition home or self-care (01) ==
PROVIDERS: Emergency Medicine; Emergency Provider Physician Assistant; PCP Family Medicine Adolescent Medicine
DX: R10.13 Epigastric pain (principal); R16.0 Hepatomegaly, not elsewhere classified; Z87.891 Personal history of nicotine dependence
CPT/HCPCS: 36415; 74177; 80053; 81003; 81025; 83690; 85025; 96374; 96375; 99284; J2270; J2405; Q9967